=== PATIENT | female | born 1930 | race Two or more races ===

== ENCOUNTER → 2017-04-08 | Outpatient (CLI) | payer OTHER ==
[~2017-04-08] MED LIST: ASPIRIN81 M2 PO; CALCIUM + D 6001 TA1 PO; EYE VITAMIN-MI1 EACH; FOSAMAX70 MG PO; MULTI VITAMIN1 EACH PO; OCUVITE SOFTGEL1 CA1 PO; VITAMIN D32000 UNIT PO
--- NOTE | ~2017-04-08 | CT57 ---
[facility] A Service of [facility] RADIOLOGY TEXT RESULTS PATIENT: KASIA ELIZONDO LOCATION: [facility] : [birth year] UNIT #: [id number] AGE: [address]: Brian Mosley MD SEX: F ORDER DR: [id number] [facility] [address]. [place], [place] [address] [id number] O MR#: [id number] Acc #: [id number] NAME: KASIA ELIZONDO. : 1930 SEX: F STUDY DATE/TIME: 04/08/2017 12:59 UNIT: [facility] ROOM: STUDY DESCRIPTION: CT Chest Wo Cont Attending Physician: Lucina Mosley M.D. Referring Physician: Lucina Mosley M.D. Ordering Physician: Brian Mosley Primary Care Physician: Carola Galindo A.P.R.N. MEDICAL IMAGING REPORT This report is preliminary unless electronic signature is present EXAM CT chest without contrast INDICATIONS Cough. Intermittent over the past year. PROCEDURE Unenhanced CT of the chest. This CT exam was performed with one or more of the following radiation dose reduction techniques: automatic control, adjustment of mA and/or kV according to patient size, and iterative reconstruction. COMPARISON None FINDINGS Scattered areas of linear scarring in both lungs. No dense consolidation pleural fluid or pneumothorax. No adenopathy. No acute findings in the included upper abdomen. Multiple stones in the gallbladder. No definitive evidence for acute inflammation. Gallbladder is not completely included. No aggressive appearing bone lesion. IMPRESSION 1. No acute findings in the chest. 2. Scattered areas of linear scarring in both lungs. 3. Cholelithiasis without evidence for acute inflammation Dictated by... Presley Giles M.D. THIS IS AN ELECTRONICALLY VERIFIED REPORT Presley Giles M.D. at 04/09/2017 7:02 AM EED/rnr [facility] A Service of [facility] RADIOLOGY TEXT RESULTS PATIENT: KASIA ELIZONDO LOCATION: [facility] : [birth year] UNIT #: [id number] AGE: [address]: Brian Mosley MD SEX: F ORDER DR: TD: 04/09/2017 02:09 JOB #: [id number] MEDICAL IMAGING REPORT Page 1 of 1 COPY
== END | disposition home or self-care (01) ==
LOC: CCAT 12:11
DX: J90 Pleural effusion, not elsewhere classified (principal); R05 Cough; J98.4 Other disorders of lung; K80.20 Calculus of gallbladder without cholecystitis without obstruction
CPT/HCPCS: 71250